=== PATIENT | female | born 1945 | race African-American/Black ===

== ENCOUNTER 2020-01-14 12:58 | Outpatient (CLI) | payer MEDICARE, SELFPAY ==
--- NOTE | ~2020-01-14 | US_ITS ---
EXAMINATION: US venous doppler LE RT EXAM DATE: 01/14/2020 13:42 INDICATION: Right calf pain. TECHNIQUE: Multiple grayscale, color flow and Doppler images of the right lower extremity deep venous system were obtained and reviewed. Comparison is made to prior examination from 06/15/2017. FINDINGS: The right common femoral, femoral and profunda veins demonstrate normal color flow, respira tory variation, augmentation and compressibility. Compressibility, color flow confirmed within the r ight popliteal, posterior tibial, peroneal, and greater saphenous veins. Resolution of previously se en posterior tibial and peroneal thrombus. IMPRESSION: 1. No right lower extremity deep venous thrombosis. Reviewed, dictated and finalized at location B.
== END 2020-01-14 12:59 | disposition home or self-care (01) ==
LOC: ANHIMG 13:09
PROVIDERS: PCP Family Medicine; Visit Provider Orthopaedic Surgery
DX: M79.661 Pain in right lower leg (principal)
CPT/HCPCS: 93971

== ENCOUNTER 2020-03-25 02:57 | Outpatient (CLI) | payer MEDICARE, MEDICAID, SELFPAY ==
[2020-03-25 18:02] LABS: SARS-CoV-2 RNA PCR Negative
== END 2020-03-25 02:58 | disposition home or self-care (01) ==
LOC: ANHCOVIDDT 02:57
PROVIDERS: PCP Family Medicine; Visit Provider Orthopaedic Surgery
DX: Z01.812 Encounter for preprocedural laboratory examination (principal); Z20.828 Contact with and (suspected) exposure to other viral communicable diseases
CPT/HCPCS: 87635; C9803; U0003

== ENCOUNTER 2020-03-28 02:05 | Day surgery (SDC) | payer MEDICARE, MEDICAID, SELFPAY ==
[2020-03-18 10:10] VITALS: BMI 37.4
--- NOTE | 2020-03-25 15:26 | WPDANESEPPF ---
Anes - Initial Pre Proc Eval Procedure: Operation Date: 03/28/20 09:00 Proposed Procedures p Right Foot Plantar Chondelectomy, Right Foot Flexor Tenotomy, - Rober Clifton MD s Right Second, Third, And Fourth Hammertoe Correction - Rober Clifton MD Date/Time: 03/25/20 15:26 Surgeon: Rober Clifton MD Pre Op Diagnosis: Rt Foot Plantar Callus/ Exostosis/ Hammertoes Patient Data Age: 75 Gender: F Height: 1.65 m Weight: 102.1 kg Allergies Allergy/AdvReac Type Severity Reaction Status Date / Time shellfish derived Allergy Severe Anaphylactic Verified 03/28/20 07:48 Shock codeine Allergy Unknown Itching Verified 03/28/20 07:48 iohexol Allergy Unknown N/V AND Verified 03/28/20 07:48 [From contrast - CT, X-RAY] ITCHING Penicillins Allergy Unknown TONGUE Verified 03/28/20 07:48 SWELLING.TROUBLE BREATHING Home Medications Medication Instructions Recorded Confirmed Type dexlansoprazole 60 mg 60 mg PO PRN PRN 03/15/20 03/28/20 History capsule,biphase delayed release dicyclomine 10 mg capsule 10 mg PO PRN PRN 03/15/20 03/28/20 History diphenhydramine HCl 25 mg capsule 25 mg PO Q6H PRN 03/15/20 03/28/20 History hydrocodone 5 mg-acetaminophen 300 1 tablet PO Q8H PRN 03/15/20 03/28/20 History mg tablet tizanidine 4 mg capsule 4 mg PO PRN PRN 03/15/20 03/28/20 History albuterol sulfate [Ventolin HFA] 2 inh INHALATION PRN PRN 03/18/20 03/28/20 History amlodipine 5 mg PO QAM 03/18/20 03/28/20 History aspirin 325 mg PO DAILY 03/18/20 03/28/20 History atenolol 50 mg PO QAM 03/18/20 03/28/20 History linaclotide [Linzess] 290 mcg PO PRN PRN 03/18/20 03/28/20 History nitroglycerin 0.4 mg SUBLINGUAL PRN PRN 03/18/20 03/28/20 History paroxetine HCl 10 mg PO HS 03/18/20 03/28/20 History Patient hx anesthesia problems: none Family hx anesthesia problems: none [facility] Past Medical History Medical History (Updated 03/25/20 @ 15:30 by Malcolm Lamb MD) Abnormality of heart beat Angina pectoris 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 Asthma Atrial fibrillation Chronic narcotic use DVT (deep venous thrombosis) Equinus contracture of right ankle Exostosis of right foot Hammertoe of right foot Hypertension Obesity PRABHA (obstructive sleep apnea) 2L O2 per nc prn Sleep apnea Sleep disorder TIA (transient ischemic attack) 2010 and 2012 Weight gain Surgical History Surgical History (Updated 03/15/20 @ 15:03 by Briana Rinaldi RT(R)) History of cholecystectomy History of total left knee replacement (TKR) History of total right knee replacement (TKR) Social History Social History Smoking packs per day: 0.5 Smoking cigarettes per day: 10.0 Years smoked: 5 Smoking pack-years: 2.50 Smoking status: Never smoker Tobacco type: cigarettes Smoking end date: 05/27/04 Alcohol intake: current Living arrangements: other Spiritual care concerns: No Anes - Eval Final PreProcedure Day of Procedure 03/25/20 15:26 Patient weight: obese Heart: regular rate and rhythm Lungs: clear to auscultation and normal air movement Airway: Mallampati scale class II Neurological: alert and oriented Last oral intake: >/= 8 hours ASA classification: III Emergent: no Anesthetic plan: proceed Anesthesia type and monitoring: general LMA and ETT Informed Consent: The patient's anesthetic plan and its attendant risks and benefits were discussed with the patient/family/POA. Questions were solicited and answers provided to the satisfaction of the patient/family/POA.
[2020-03-28] VITALS (12 sets, daily range): BP systolic 118–142; BP diastolic 59–83; PULSE 62–90; RESP 14–18; TEMP 36.2–36.3; O2SAT 95–100; BMI 37.8
--- NOTE | ~2020-03-28 | XR_ITS ---
EXAMINATION: XR surgery orthopedic EXAM DATE: 03/28/2020 10:11 INDICATION: Right foot hammertoe correction. TECHNIQUE: Fluoroscopy used during right foot hammertoe correction performed by Dr. Rober Clifton MD. The DAP for this procedure was 1.1 cGycm2. Correlation made with x-ray 03/15/2020 FINDINGS: Some subcutaneous gas, surgical defect with surgical pins overlying right 2nd and 3rd digi ts into the metatarsal heads. Old 4th metatarsal neck fracture. Correlate with procedure note. IMPRESSION: Fluoroscopy used during XR surgery orthopedic. Reviewed, dictated and finalized at location B. [employer]ER
--- NOTE | 2020-03-28 07:16 | WPDHPUPDATE1 ---
History and Physical Update Update Date/Time: 03/28/20 07:16 History and Physical has been reviewed, including an updated exam of the patient. There are NO changes in the patient's condition. Covid test negative. Risks, benefits, and alternatives have been discussed and questions answered. Patient agrees to proceed with procedure.
[2020-03-28] MEDS: KETOROLAC 15 MG/ML VIAL (*BKC) IV PUSH (08:01)
[2020-03-28] MEDS: LACTATED RINGERS 1,000 ML 30 ML IV CONT ×2 (08:01→12:07)
[2020-03-28] MEDS: ACETAMINOPHEN 500 MG TABLET 1000 MG PO (08:01)
--- NOTE | 2020-03-28 08:12 | SUR.PREOP ---
PT C/O BEING ANXIOUS. ASKING FOR SOMETHING FOR HER NERVES. ANESTHESIA NOTIFIED.
--- NOTE | 2020-03-28 08:40 | SUR.PREOP ---
0810; DR HUNTER NOTIFIED THAT PT DID NOT TAKE HER ATENOLOL TODAY. LAST DOSE WAS YESTERDAY AM
[2020-03-28] MEDS: MIDAZOLAM HCL (*CRX) 2 MG/2 ML VIAL 1 MG IV PUSH (08:41)
[2020-03-28] MEDS: CLINDAMYCIN 900 MG/D5W 50 ML 900 MG/50 ML PIGGYBACK 50 MG IVPB (09:13)
[2020-03-28] MEDS: BUPIVACAINE HCL 0.5% PF 30 ML VIAL INFILTRATE (09:39)
--- NOTE | 2020-03-28 11:06 | PM.PROC ---
Procedure Note - Detailed Date of procedure: 03/28/20 Pre-op diagnosis: Rt Foot Plantar Callus/ Exostosis/ Hammertoes Post-op diagnosis: same Procedure performed: right foot excision of exostosis 2nd 3rd 4th and 5th metatarsals, flexor tenotomy 2nd and 4th toe, 3rd hammertoe correction with proximal interphalangeal joint arthrodesis. Description of procedure: Indications: Patient is a 75-year-old woman with a previous right ankle arthrodesis. She now has forefoot pain, prominence of the plantar 2nd 3rd 4th and 5th metatarsals as well as hammertoe deformity. She has failed conservative treatment and presents now for operative treatment. What was done: Patient identified in the preoperative holding. Informed consent given. Operative extremity marked. Patient received intravenous antibiotics. Patient brought to the operating room where underwent general anesthetic by anesthesia team. Positioned supine on operating room table. Time-out performed confirming the patient, site of the surgery and the plan. Right foot prepped draped usual sterile surgical fashion using a ChloraPrep skin solution. Foot and ankle exsanguinated and a calf tourniquet inflated to 225 mmHg. Removal of the exostoses addressed 1st. Dorsal longitudinal incision made between the 2nd 3rd metatarsal with a 15 blade knife. Hemostasis controlled electrocautery. Dissection carried to the 2nd metatarsophalangeal joint and a dorsal capsulotomy performed. Retractors were placed. Release of the plantar capsule performed with a elevator. Rongeur used to remove the exostosis from the plantar aspect of the 2nd metatarsal head. Wound thoroughly irrigated the capsule closed through Monocryl interrupted suture. Dissection then carried to the 3rd metatarsophalangeal joint and the capsule incised in line with skin incision on the dorsum. Retractors placed and a rongeur used to remove the plantar exostosis from the 3rd metatarsal head. Wound thoroughly irrigated the capsule closed with 3 Monocryl interrupted suture. Subcutaneous tissue repaired with 3 Monocryl suture skin closed with 4 nylon interrupted suture. The 4th metatarsophalangeal joint was then able to be visualized through the same incision. Dorsal capsulotomy performed with 15 blade knife. Retractors placed and the plantar exostosis from the 4th metatarsal head removed with a rongeur. Wound thoroughly irrigated the capsule closed with 3 Monocryl interrupted suture. The 5th metatarsophalangeal joint approached from a longitudinal incision made with 15 blade knife over the distal 5th metatarsal. Hemostasis controlled electrocautery. Capsule incised line with skin incision and retractors placed. The exostosis from the plantar 5th metatarsal head removed with a rongeur. Wound irrigated capsule closed with 3 Monocryl inverted suture. Skin repaired with 4 O nylon running suture. Fifteen blade knife was then used to perform a percutaneous tenotomy of the flexor tendon of the 2nd toe at the middle phalanx level. Fifteen blade knife used to perform a percutaneous tenotomy of the flexor tendon of the 4th toe at the middle phalanx level. Wounds irrigated and skin closed with 4 nylon interrupted suture. Third toe then addressed last. Dorsal longitudinal incision made with 15 blade knife. Hemostasis controlled electrocautery. The dorsal capsule and extensor tendon were removed with a 15 blade knife. Distal end of the proximal phalanx resected with a bone cutter. Articular surface of the middle phalanx removed with a rongeur. Thorough irrigation done joint was then reduced and fixed with a 0.045 in K-wire. Second toe was also picks to fixed with a 0.045 in K-wire. Image intensification confirm alignment and placement of the hardware. Local anesthetic with 0.5% Marcaine plain. Sterile dressing applied. The patient was then woken from anesthesia, extubated and taken to the recovery room in stable condition. All sponge, needle, instrument c
--- NOTE | 2020-03-28 11:26 | ECG_ITS ---
Measurements Intervals [place] Rate: 74 P: 64 NH: 205 QRS: 2 QRSD: 90 T: 32 QT: 411 QTc: 458 Interpretive Statements SINUS RHYTHM BASELINE ARTIFACT- I, V1 NORMAL ECG Electronically Signed On 03-28-2020 11:39:19 RESIDENT CARE ASSISTANT by Marcus Nation D.O.
--- NOTE | 2020-03-28 11:38 | SUR.PHASEI ---
1138 12 LEAD EKG COMPLETED.
--- NOTE | 2020-03-28 11:52 | SUR.PHASEI ---
1150 DR HUNTER AT BEDSIDE ASSESSING PT & AWARE OF EKG- ORDER FOR TRIPONIN LAB DISCONTINUED.
== END 2020-03-28 13:52 | disposition home or self-care (01) ==
PROVIDERS: PCP Family Medicine; Visit Provider Orthopaedic Surgery
PROC: (CPT 28285; principal; 2020-03-28 09:00)
PROC: (CPT 28285; 2020-03-28 09:00)
DX: M25.774 Osteophyte, right foot (principal); M20.41 Other hammer toe(s) (acquired), right foot; M24.571 Contracture, right ankle; I10 Essential (primary) hypertension; I48.91 Unspecified atrial fibrillation; J45.909 Unspecified asthma, uncomplicated; G47.33 Obstructive sleep apnea (adult) (pediatric); Z86.73 Personal history of transient ischemic attack (TIA), and cerebral infarction without residual deficits; Z86.718 Personal history of other venous thrombosis and embolism; E66.9 Obesity, unspecified; Z68.37 Body mass index [BMI] 37.0-37.9, adult; Z87.891 Personal history of nicotine dependence
CPT/HCPCS: 28285; 28104 ×2; 28230; 93005; A9270; C1713; J1100; J1885; J2250; J2405; J2704; J3010; J7120